=== PATIENT | male | born 1940 | race Caucasian/White ===

== ENCOUNTER 2018-06-29 10:33 | Emergency (ER) | payer MEDICARE ==
[~2018-06-29] VITALS: Ht 177.8 cm; Wt 111.1 kg
[2018-06-29] MEDS ORDERED: LISINOPRIL20 MG PO (10:48)
[2018-06-29] MEDS ORDERED: VERAPAMIL E.R240 M1 PO (10:49)
[2018-06-29 11:29] LABS: ABSOLUTE EOSINOPHILS 0.2 thou/uL (0.0-0.7); ABSOLUTE LYMPHOCYTES 0.9 thou/uL (0.8-5.3); ABSOLUTE MONOCYTES 0.6 thou/uL (0.0-1.2); ABSOLUTE NEUTROPHILS 5.6 thou/uL (1.6-8.1); BASOPHILS 0.5 %; EOSINOPHILS 2.9 %; HEMATOCRIT 44.5 % (42.0-52.0); HEMOGLOBIN 15.2 gm/dL (14.0-18.0); LYMPHOCYTES 11.8 %; MCHC 34.1 g/dL (28.0-37.0); MCV 90.7 fL (80.0-100.0); MONOCYTES 7.7 %; MPV 7.2 fl. (7.2-11.1); NUCLEATED RBCS 0 /100WBC; PLATELET COUNT* 362 thou/uL (150-400); POLYS 77.1 %; WBC 7.3 thou/uL (4.0-11.0)
[2018-06-29 11:35] LABS: CALCIUM 9.4 mg/dL (8.5-10.1); CREATININE 1.3 mg/dL (0.6-1.3); POTASSIUM 4.3 mmol/L (3.5-5.1)
[2018-06-29 11:44] LABS: URINE BILIRUBIN NEGATIVE (Negative); URINE BLOOD NEGATIVE (Negative); URINE COLOR YELLOW; URINE GLUCOSE-RANDOM NEGATIVE (Negative); URINE KETONES NEGATIVE (Negative); URINE LEUKOCYTES-REFLEX NEGATIVE (Negative); URINE NITRITE-REFLEX NEGATIVE (Negative); URINE PROTEIN NEGATIVE (Negative); URINE SPECIFIC GRAVITY <= 1.005 (1.005-1.030); URINE UROBILINOGEN 0.2 E.U./dl (0.2-1.0)
[2018-06-29 11:46] LABS: URINE CLARITY CLEAR
[2018-06-29 11:48] LABS: ALBUMIN 3.8 g/dL (3.4-5.0); TOTAL BILIRUBIN 0.3 mg/dL (<0.1-1.0); TOTAL PROTEIN 7.3 g/dL (6.4-8.2)
[2018-06-29 13:25] VITALS: BP 168/86
== END 2018-06-29 13:25 | disposition home or self-care (01) ==
LOC: M.ERS 10:33
PROVIDERS: Physician Assistant
DX: K59.00 Constipation, unspecified (principal); I10 Essential (primary) hypertension; Z91.013 Allergy to seafood

== ENCOUNTER → 2019-10-10 | Outpatient (CLI) | payer MEDICARE ==
[~2019-10-10] MED LIST: LISINOPRIL20 MG PO; VERAPAMIL E.R240 M1 PO
== END ==
LOC: M.ULTRA 14:26
DX: M79.89 Other specified soft tissue disorders (principal)